=== PATIENT | female | born 1960 | race Caucasian/White ===

== ENCOUNTER 2018-04-15 07:48 | Day surgery (SDC) | payer OTHER ==
[2018-04-08 10:50] LABS: HEMATOCRIT 38.4 % (36.0-47.0); HEMOGLOBIN 13.1 g/dL (12.0-15.5); MEAN CORPUSCULAR VOLUME 88 fl (80-97); PLATELET COUNT 214 10^3/uL (150-450); RED BLOOD COUNT 4.35 10^6/uL (3.72-5.28); RED CELL DISTRIBUTION WIDTH 13.6 % (11.5-14.0); WHITE BLOOD COUNT 5.5 10^3/uL (4.0-10.5)
[2018-04-08 11:16] LABS: ANION GAP 8 (5-19); BLOOD UREA NITROGEN 9 mg/dL (7-20); CALCIUM 9.6 mg/dL (8.4-10.2); CARBON DIOXIDE 31 mmol/L (22-30); CHLORIDE 104 mmol/L (98-107); GLUCOSE 90 mg/dL (75-110); POTASSIUM 4.5 mmol/L (3.6-5.0); SODIUM 142.8 mmol/L (137-145)
--- NOTE | 2018-04-12 13:00 | EKG REPORT ---
SEVERITY:- BORDERLINE ECG - SINUS RHYTHM EARLY PRECORDIAL TRANSITION, CLINICAL CORRELATION NEEDED. : Confirmed by: Blayne Steele MD 12-Apr-2018 12:59:34
[~2018-04-15 07:48] MED LIST: CEFAZOLIN 2 GM/D5W RTU 2 GM/50 ML RTUPB IV PRN; GLYCOPYRROLATE 1 MG/5 ML SYRINGE ONE; LACTATED RINGERS 1000 ML IV PRN; LIDOCAINE 0.5% INJ-PF (5 MG/ML) 50 ML SDV SUBCUT PRN; ONDANSETRON HCL INJ/PF 4 MG/2 ML SDV ONE
[2018-04-15] MEDS ORDERED: BUPIVACAINE HCL 0.5 % INJ/PF 30 ML SDV ONE (08:24)
--- NOTE | 2018-04-15 08:39 | RADIOLOGY REPORT (SQ) ---
EXAM DESCRIPTION: CHEST SINGLE VIEW COMPLETED DATE/TIME: 04/15/2018 8:30 am REASON FOR STUDY: SOB pre-operative COMPARISON: None. EXAM PARAMETERS: NUMBER OF VIEWS: One view. TECHNIQUE: Single frontal radiographic view of the chest acquired. RADIATION DOSE: NA LIMITATIONS: None. FINDINGS: LUNGS AND PLEURA: No opacities, masses or pneumothorax. No pleural effusion. MEDIASTINUM AND HILAR STRUCTURES: No masses. Contour normal. HEART AND VASCULAR STRUCTURES: Heart normal in size. Normal vasculature. BONES: No acute findings. HARDWARE: None in the chest. OTHER: No other significant finding. IMPRESSION: NO ACUTE RADIOGRAPHIC FINDING IN THE CHEST. TECHNICAL DOCUMENTATION: JOB ID: [id number] [employer]- All Rights Reserved Reading location - IP/workstation name: [email or web address]
[2018-04-15] MEDS ORDERED: FAMOTIDINE INJ/PF 20 MG/2 ML SDV IV ONE (09:09)
[2018-04-15] MEDS ORDERED: SCOPOLAMINE HYDROBROMIDE 1.5 MG PATCH.TD72 ONE (09:09)
[2018-04-15] MEDS ORDERED: FENTANYL CITRATE INJ/PF 100 MCG/2 ML AMPUL ONE ×3 (12:04→12:05)
[2018-04-15] MEDS ORDERED: MIDAZOLAM 2 MG/2 ML INJ ONE (12:05)
[2018-04-15] MEDS ORDERED: PROPOFOL INJ 200 MG/20 ML VIAL IV ONE (12:05)
[2018-04-15] MEDS ORDERED: DIPHENHYDRAMINE HCL 50 MG/ML VIAL IV PRN (12:30)
[2018-04-15] MEDS ORDERED: MEPERIDINE HCL/PF INJ 25 MG/1 ML DISP.SYRIN IV PRN (12:30)
[2018-04-15] MEDS ORDERED: FENTANYL CITRATE INJ/PF 100 MCG/2 ML AMPUL IV PRN ×3 (12:30)
[2018-04-15] MEDS ORDERED: PROMETHAZINE HCL INJ 25 MG/1 ML VIAL IV PRN (12:30)
[2018-04-15] MEDS ORDERED: KETOROLAC TROMETHAMINE INJ/PF 30 MG/1 ML SDV ONE (13:54)
[2018-04-15] MEDS ORDERED: ACETAMINOPHEN 1,000 MG/100 ML RTUPB IV ONE (13:55)
--- NOTE | 2018-04-15 14:07 | Operative Report ---
Nonrecallable Operative Report DATE OF SURGERY: 04/15/18 PREOPERATIVE DIAGNOSIS: nipple inversion, symptomatic drainage, BIRADS 4 mammogram POSTOPERATIVE DIAGNOSIS: same as above OPERATION: 1. left sided complete subareolar mammary duct excision. 2. Right sided solitary mammary duct excision SURGEON: GUERA CHO ANESTHESIA: GA TISSUE REMOVED OR ALTERED: 1. Left-sided subareolar duct excision. 2. Right sided solitary duct excision COMPLICATIONS: None apparent ESTIMATED BLOOD LOSS: Minimal PROCEDURE: Drains/implants: None Procedure in detail: After informed consent was obtained, the patient was laid in the supine position. The area of the chest was prepped and draped in a normal sterile fashion. Attention was turned to the left breast. A curvilinear incision was created at the inferior border of the left areola. Dissection was carried through the subcutaneous tissue. The subareolar mammary ducts were excised as one continuous piece. The specimen was removed from the patient and marked with sutures. Short stitch marked as superior, long stitch marked as lateral, one long/one short stitch marked as anterior. The subcutaneous tissue was then closed using 3-0 Vicryl suture in simple interrupted fashion. The overlying skin was closed using 4-0 Vicryl Rapide in subcuticular fashion. Attention was then turned to the right breast. The symptomatic right sided duct was identified and probed with a lacrimal probe. A radial incision was then created in the right nipple. The duct was excised from the skin level down to its terminus using sharp dissection and electrocautery. Once the duct was completely excised, the nipple was closed using 4-0 Vicryl Rapide suture in simple running fashion. A dressing was placed , and the procedure was concluded. All sponge, instrument, and needle counts were correct 2. Condition: Stable.
--- NOTE | 2018-04-15 14:10 | Discharge Summary ---
Discharge Summary (SDC) - Discharge Final Diagnosis: birads 4 mammogram, symptomatic nipple drainage bilaterally, nipple inversion Date of Surgery: 04/15/18 Discharge Date: 04/15/18 Condition: Stable Referrals: PARVIZ ADAIR PA [Primary Care Provider] - Discharge Diet: As Tolerated Respiratory Treatments at Home: Deep Breathing/Coughing, Incentive Spirometer Discharge Activity: Balance Activity w/Rest Home Care Assistance: None Needed Report the Following to Your Physician Immediately: Shortness of Breath, Nausea , Vomiting, Yellow Skin, Fever over 101 Degrees, Unusual Bleeding, Redness, Swelling, Warmth, Increased Soreness
[2018-04-15] MEDS ORDERED: HYDROCODONE/ACETAMINOPHEN 5-325 MG TABLET ONE (15:07)
[2018-04-15 17:03] VITALS: BP 114/77
== END 2018-04-15 16:15 | disposition home or self-care (01) ==
LOC: OROUT 07:48
PROVIDERS: ATTEND Surgery
DX: N60.42 Mammary duct ectasia of left breast (principal); N60.41 Mammary duct ectasia of right breast; N60.12 Diffuse cystic mastopathy of left breast; N60.11 Diffuse cystic mastopathy of right breast; N64.59 Other signs and symptoms in breast; N64.52 Nipple discharge; Z88.2 Allergy status to sulfonamides; Z88.3 Allergy status to other anti-infective agents; Z79.899 Other long term (current) drug therapy
CPT/HCPCS: 93005; 36415; 85027; 80048; 88305 ×2; 71045; 93010; 19120; J2250; J3490 ×2; J3010; J1885; J2405; J2704; S0028; J0690; J0131; 400

== ENCOUNTER 2018-06-20 12:02 | Emergency (ER) | payer OTHER ==
[2018-06-20 12:17] VITALS: BP 185/88
[2018-06-20] MEDS ORDERED: IPRATROPIUM/ALBUTEROL 0.5-2.5 MG/3 ML AMPUL NEB ONE (14:51)
[2018-06-20 15:11] LABS: ABSOLUTE EOSINOPHILS # (AUTO) 0.2 10^3/uL (0.0-0.6); ABSOLUTE MONOCYTES (AUTO) 0.4 10^3/uL (0.1-1.4); ABSOLUTE NEUT (AUTO) 1.6 10^3/uL (1.7-8.2); BASOPHILS % (AUTO) 0.6 % (0-2); EOSINOPHILS % (AUTO) 3.7 % (0-6); HEMATOCRIT 39.3 % (36.0-47.0); HEMOGLOBIN 13.5 g/dL (12.0-15.5); LYMPHOCYTES % (AUTO) 47.6 % (13-45); MEAN CORPUSCULAR HEMOGLOBIN 30.2 pg (27.0-33.4); MEAN CORPUSCULAR HGB CONC 34.4 g/dL (32.0-36.0); MEAN CORPUSCULAR VOLUME 88 fl (80-97); MONOCYTES % (AUTO) 10.3 % (3-13); PLATELET COUNT 246 10^3/uL (150-450); RED BLOOD COUNT 4.47 10^6/uL (3.72-5.28); RED CELL DISTRIBUTION WIDTH 13.7 % (11.5-14.0); SEGMENTED NEUTROPHILS % (AUTO) 37.8 % (42-78); TOTAL CELLS COUNTED % (AUTO) 100 %; WHITE BLOOD COUNT 4.3 10^3/uL (4.0-10.5)
[2018-06-20 15:32] LABS: ALANINE AMINOTRANSFERASE 40 U/L (9-52); ALBUMIN 4.4 g/dL (3.5-5.0); ALKALINE PHOSPHATASE 84 U/L (38-126); ANION GAP 10 (5-19); ASPARTATE AMINO TRANSFERASE 69 U/L (14-36); BILIRUBIN,DIRECT 0.1 mg/dL (0.0-0.4); BILIRUBIN,TOTAL 0.6 mg/dL (0.2-1.3); BLOOD UREA NITROGEN 10 mg/dL (7-20); CALCIUM 9.8 mg/dL (8.4-10.2); CARBON DIOXIDE 31 mmol/L (22-30); CHLORIDE 103 mmol/L (98-107); CREATINE KINASE 62 U/L (30-135); GLUCOSE 97 mg/dL (75-110); POTASSIUM 4.2 mmol/L (3.6-5.0); SODIUM 143.6 mmol/L (137-145); TOTAL PROTEIN 7.1 g/dL (6.3-8.2)
[2018-06-20 15:46] LABS: TROPONIN I < 0.012 ng/mL
--- NOTE | 2018-06-20 18:23 | RADIOLOGY REPORT (SQ) ---
EXAM DESCRIPTION: CTA CHEST COMPLETED DATE/TIME: 06/20/2018 6:01 pm REASON FOR STUDY: left chest pain COMPARISON: None. TECHNIQUE: CT scan of the chest performed using helical scanning technique with dynamic intravenous contrast injection. Images reviewed with lung, soft tissue and bone windows. Reconstructed coronal and sagittal MPR images reviewed. Additional 3 dimensional post-processing performed to develop Maximal Intensity Projection images (OR P). All images stored on PACS. All CT scanners at this facility use dose modulation, iterative reconstruction, and/or weight based d osing when appropriate to reduce radiation dose to as low as reasonably achievable (ALARA). [facility]: Dose Right [facility]: CareDose [facility]: Dose Right [facility]: Teradose 4D [facility]: [employer] CONTRAST TYPE AND DOSE: contrast/concentration: Isovue 350.00 mg/ml; Total Contrast Delivered: 65.0 ml; Total Saline Delivered: 90.0 ml Contrast bolus optimized for the pulmonary arteries. Not diagnostic for the aorta. RENAL FUNCTION: GFR > 60. RADIATION DOSE: CT Rad equipment meets quality standard of care and radiation dose reduction techniq ues were employed. CTDIvol: 14.3 - 16.5 mGy. DLP: 553 mGy-cm. . LIMITATIONS: None. FINDINGS: LUNGS AND PLEURA: No pneumothorax. Small areas of ground-glass and patchy airspace opacit ies in the left lower lobe. No pleural effusions or pleural calcifications. AORTA AND GREAT VESSELS: No aneurysm. Contrast bolus not optimized for the aorta. HEART: No pericardial effusion. No significant coronary artery calcifications. PULMONARY ARTERIES: No emboli visualized in the main pulmonary arteries or the segmental branches. HILAR AND MEDIASTINAL STRUCTURES: No identified masses or abnormal nodes. HARDWARE: None in the chest. UPPER ABDOMEN: No significant findings. Limited exam. THYROID AND OTHER SOFT TISSUES: No masses. No adenopathy. BONES: No acute or significant finding. 3D MIPS: Confirm above findings. OTHER: No other significant finding. IMPRESSION: Small areas of ground-glass and patchy airspace opacities in the left lower lobe. . NO PULMONARY EMBOLI. COMMENT: Quality ID # [id number]: Final reports with documentation of one or more dose reduction techniques (e.g., Automated exposure control, adjustment of the mA and/or kV according to patient size, use of iterative reconstruction technique) TECHNICAL DOCUMENTATION: JOB ID: [id number] [place]-72 2010 [employer]- All Rights Reserved Reading location - IP/workstation name: [email or web address]
--- NOTE | 2018-06-20 19:22 | ER Document Report ---
ED General - General Chief Complaint: Chest Pain Stated Complaint: CHEST PAIN, COUGH Time Seen by Provider: 06/20/18 14:49 TRAVEL OUTSIDE OF THE [place] IN LAST 30 DAYS: No - HPI Patient complains to provider of: Cough chest pain Notes: Patient with cough chest pain ongoing for the last 3-4 days. States productive sputum. Patient denies any recent sick contacts denies any recent travel seen a local urgent care referred to the ER for further evaluation for chest pain mostly concerned about a pulmonary embolism. Upon my evaluation patient is resting medically. Patient states she is having had a sputum patient's blood pressure is also elevated patient attributes this to the cough medication that she has been taking. Patient denies any increase in her night sweats states that she always sweats at night denies any chills or fevers states pain in her chest diffuse anterior lateral and in her back states most significant whenever she is coughing. Patient otherwise does endorses state of feeling unwell. - Related Data Allergies/Adverse Reactions: sulfamethoxazole [From Septra] Allergy (Severe, Verified 04/08/18 09:44) trimethoprim [From Septra] Allergy (Severe, Verified 04/08/18 09:44) povidone-iodine [From Betadine] Allergy (Verified 04/08/18 10:59) soap [From Betadine] Allergy (Verified 04/08/18 10:59) Past Medical History - Social History Smoking Status: Never Smoker Family History: Reviewed & Not Pertinent Patient has suicidal ideation: No Patient has homicidal ideation: No - Past Medical History Cardiac Medical History: Reports: Hx Coronary Artery Disease - HIGH CHOLESTEROL , Hx Hypertension - NO MEDS Denies: Hx Heart Attack Pulmonary Medical History: Denies: Hx Asthma, Hx Bronchitis, Hx COPD, Hx Pneumonia Neurological Medical History: Denies: Hx Cerebrovascular Accident, Hx Seizures Renal/ Medical History: Denies: Hx Peritoneal Dialysis Musculoskeletal Medical History: Denies Hx Arthritis Past Surgical History: Reports: Hx Abdominal Surgery - Gastric bypass, Hx Cholecystectomy, Hx Genitourinary Surgery, Hx Hysterectomy - Immunizations Hx Diphtheria, Pertussis, Tetanus Vaccination: Yes Review of Systems - Review of Systems Constitutional: No symptoms reported EENT: No symptoms reported Cardiovascular: Chest pain Respiratory: Cough, Short of breath, Sputum Gastrointestinal: No symptoms reported Genitourinary: No symptoms reported Female Genitourinary: No symptoms reported Musculoskeletal: No symptoms reported Skin: No symptoms reported Hematologic/Lymphatic: No symptoms reported Neurological/Psychological: No symptoms reported -: Yes All other systems reviewed and negative Physical Exam - Vital signs Vitals: Temp Pulse Resp BP Pulse Ox 98.3 F 71 16 185/88 H 98 06/20/18 12:13 06/20/18 12:13 06/20/18 12:13 06/20/18 12:13 06/20/18 12:13 Interpretation: Normal - General General appearance: Appears well, Alert - HEENT Head: Normocephalic, Atraumatic Eyes: Normal Pupils: PERRL - Respiratory Respiratory status: No respiratory distress Chest status: Tender - Diffuse tenderness to palpation Breath sounds: Normal, Rhonchi - Left lower lobe Chest palpation: Normal - Cardiovascular Rhythm: Regular Heart sounds: Normal auscultation Murmur: No - Abdominal Inspection: Normal Distension: No distension Bowel sounds: Normal Tenderness: Nontender Organomegaly: No organomegaly - Back Back: Normal, Nontender - Extremities General upper extremity: Normal inspection, Nontender, Normal color, Normal ROM , Normal temperature General lower extremity: Normal inspection, Nontender, Normal color, Normal ROM , Normal temperature, Normal weight bearing. No: Aj's sign - Neurological Neuro grossly intact: Yes Cognition: Normal Orientation: AAOx4 Kristian Coma Scale Eye Opening: Spontaneous Kristian Coma Scale Verbal: Oriented Kristian Coma Scale Motor: Obeys Commands [place] Coma Scale Total: 15 Speech: Normal Motor strength normal: LUE, RUE, LLE, RLE Sensory: Normal - Psychological Associated symptoms: Normal affect, Normal mood - Skin Skin Temperature: Warm Skin Moisture: Dry Skin Color: Normal Course - Re-evaluation Re-evalutation: 06/21/18 00:41 CT scans not showing signs of PE. Does show groundglass opacities with the patient's productive sputum and rhonchi concerned about developing pneumonia patient will be given inhalers started on Levaquin patient requesting Tessalon Perles for cough suppression honey education was also given for cough suppression. Patient otherwise looks good for outpatient follow-up patient was recommended to monitor her blood pressures and to abstain from any other over- the-counter cough medication - Vital Signs Vital signs: Temp Pulse Resp BP Pulse Ox 98.3 F 71 16 185/88 H 98 06/20/18 12:13 06/20/18 12:13 06/20/18 12:13 06/20/18 12:13 06/20/18 12:13 - Laboratory Result Diagrams: 06/20/18 15:00 06/20/18 15:00 Laboratory results interpreted by me: 06/20/18 06/20/18 15:00 15:00 Seg Neutrophils % 37.8 L Lymphocytes % 47.6 H Absolute Neutrophils 1.6 L Carbon Dioxide 31 H AST 69 H Discharge - Discharge Clinical Impression: Pneumonia Qualifiers: Pneumonia type: due to unspecified organism Laterality: left Lung location: lower lobe of lung Qualified Code(s): J18.1 - Lobar pneumonia, unspecified organism Condition: Good Disposition: HOME, SELF-CARE Instructions: Levofloxacin, Pneumonia ([facility]) Additional Instructions: Your CTA of your chest does not show any signs of a pulmonary embolism with exercise of a developing pneumonia. This along with your cough will start you on an antibiotic called Levaquin. Please take the antibiotic to completion. We will also give you a prescription for Tessalon Perles to help out with your cough I would also recommend taking honey to aid in cough suppression. Please avoid any [id number] cough medications that your blood pressure is elevated today. I would highly recommend following up with your primary care physician for further evaluation of your elevated blood pressure. Return to the ER if you feel like you are not improving. Use inhaler that we gave you here in the ER 2 puffs every 4 hours or as needed for any shortness of breath or difficulty breathing. Prescriptions: Benzonatate [Tessalon Perle 100 mg Capsule] 100 mg PO Q8HP PRN #40 cap PRN Reason: Levofloxacin [Levaquin] 500 mg PO DAILY #6 tablet Forms: Elevated Blood Pressure Referrals: PARVIZ ADAIR PA [Primary Care Provider] - Follow up as needed
[2018-06-20] MEDS ORDERED: BENZONATATE 100 MG CAPSULE PO ONE (19:23)
[2018-06-20] MEDS ORDERED: LEVOFLOXACIN 500 MG TABLET PO ONE (19:23)
[2018-06-20] MEDS ORDERED: ALBUTEROL SULFATE HFA (90 MCG/PUFF) 8 GM MDI (1 MDI/ER DISP) IH ONE (19:23)
--- NOTE | 2018-06-20 22:17 | EKG REPORT ---
SEVERITY:- BORDERLINE ECG - SINUS RHYTHM CONSIDER LEFT VENTRICULAR HYPERTROPHY : Confirmed by: Rosalva Salcido MD 20-Jun-2018 22:16:27
== END 2018-06-20 19:36 | disposition home or self-care (01) ==
LOC: ER 12:02
DX: J18.1 Lobar pneumonia, unspecified organism (principal); R07.9 Chest pain, unspecified; E78.00 Pure hypercholesterolemia, unspecified; Z98.84 Bariatric surgery status; Z90.49 Acquired absence of other specified parts of digestive tract
CPT/HCPCS: 93005; 94640; 99284; 36415; 82553; 82550; 85025; 80053; 84484; 71275; 93010; J3490; J7620